=== PATIENT | female | born 1965 | race Caucasian/White ===

== ENCOUNTER → 2018-08-14 | Outpatient (CLI) | payer OTHER | END | disposition home or self-care (01) | LOC: CFH 14:05 | PROVIDERS: ATTEND Internal Medicine Cardiovascular Disease | DX: R00.2 Palpitations (principal) | CPT/HCPCS: 71046 ==

== ENCOUNTER 2018-08-28 05:58 | Day surgery (SDC) | payer OTHER ==
[~2018-08-28] VITALS: Ht 160 cm; Wt 73.0 kg
[2018-08-28] MEDS ORDERED: SODIUM CHLORIDE 0.9% 1,000 ML IV SCH (06:23)
[2018-08-28 06:35] VITALS: BP 129/60
[2018-08-28] MEDS ORDERED: ASPI-515 PO (06:58)
[2018-08-28 07:07] LABS: BASOPHILS # (AUTO) 0.03 x10^3/uL (0-0.1); BASOPHILS % (AUTO) 0 % (0-1); EOSINOPHILS # (AUTO) 0.14 x10^3/uL (0-0.4); EOSINOPHILS % (AUTO) 2 % (1-7); LYMPHOCYTES # (AUTO) 1.72 x10^3/uL (1-3.4); LYMPHOCYTES % (AUTO) 25 % (22-44); MD NO; MEAN CORPUSCULAR HEMOGLOBIN 29.6 pg (27.0-34.8); MEAN CORPUSCULAR HGB CONC 34.2 g/dL (32.4-35.8); MEAN CORPUSCULAR VOLUME 86.7 fL (80-100); MEAN PLATELET VOLUME 7.5 fL (7.4-10.4); MONOCYTES # (AUTO) 0.62 x10^3/uL (0.2-0.8); MONOCYTES % (AUTO) 9 % (2-9); NEUTROPHILS # (AUTO) 4.41 x10^3/uL (1.8-6.8); NEUTROPHILS % (AUTO) 64 % (42-75); PLATELET COUNT 309 x10^3/uL (130-400); RED CELL DISTRIBUTION WIDTH 13.5 % (9.6-15.2)
[2018-08-28 07:16] LABS: ANION GAP 7 mmol/L (5-15); CALCIUM 9.3 mg/dL (8.5-10.1); CHLORIDE 111 mmol/L (98-107); CREATININE 0.78 mg/dL (0.55-1.02)
[2018-08-28] MEDS ORDERED: MIDAZOLAM 1 MG/ML, 2ML ONE (07:53)
[2018-08-28] MEDS ORDERED: FENTANYL PF 100 MCG/2ML ONE (07:54)
[2018-08-28] MEDS ORDERED: LIDOCAINE 2%, 20ML ONE (07:54)
[2018-08-28] MEDS ORDERED: HEPARIN 1,000 UNITS/ML, 10ML ONE (07:54)
[2018-08-28] MEDS ORDERED: ISOPROTERENOL 0.2MG/ML, 5ML ONE (07:54)
[2018-08-28] MEDS ORDERED: ADENOSINE 6 MG/2 ML ONE (07:54)
[2018-08-28] MEDS ORDERED: ACETAMINOPHEN 325 MG TABLET PO PRN (09:30)
[2018-08-29] MEDS ORDERED: ASPIRIN 81 MG TABLET EC PO SCH (09:00)
== END 2018-08-28 13:55 | disposition home or self-care (01) ==
LOC: CACL 05:58
PROVIDERS: ATTEND Internal Medicine Cardiovascular Disease
DX: I47.1 Supraventricular tachycardia (principal); Z79.899 Other long term (current) drug therapy
CPT/HCPCS: 36415; 80048; 85025; 93613; 93621; 93623; 93653; 99156; 99157; C1730; C1894; C2630; J2250; J3010; J0153; J1644